=== PATIENT | female | born 2000 | race American Indian/Alaskan Native ===

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

== ENCOUNTER 2020-09-15 08:22 | Outpatient (CLI) | payer OTHER ==
[2020-09-15] MEDS ORDERED: LACTATED RINGERS 1,000 ML ONE (10:22)
[2020-09-15] MEDS ORDERED: LACTATED RINGERS 500 ML IV ONE (10:32)
[2020-09-15 11:56] LABS: Bilirubin,Urine NEG (Negative); Blood,Urine NEG (Negative); Color,Urine Yellow (Yellow); Protein,Urine <15 mg/dL mg/dL (Negative); Urobilinogen,Urine < 2.0 mg/dL (<2.0)
[2020-09-15] MEDS ORDERED: TERBUTALINE 1 MG/1 ML INJ SUB-Q ONE (12:21)
[2020-09-15 13:49] VITALS: BP 115/67
== END 2020-09-15 14:15 | disposition home or self-care (01) ==
LOC: TRG 08:22 → APU 08:25 → TRG 14:15
PROVIDERS: ATTEND Obstetrics & Gynecology
DX: O26.893 Other specified pregnancy related conditions, third trimester (principal); R10.2 Pelvic and perineal pain; Z3A.34 34 weeks gestation of pregnancy
CPT/HCPCS: 59025; 81001; 96361; 96365; 96372; J0690; J3105; J7120; 96360

== ENCOUNTER 2020-09-24 10:52 | Emergency (ER) | payer OTHER ==
[2020-09-24 14:09] LABS: Basophils % (Auto) 0.4 % (0.0-1.8); Eosinophils # (Auto) 0.1 K/mm3 (0.0-0.4); Eosinophils % (Auto) 0.8 % (0.0-4.3); Hemoglobin 10.4 gm/dl (10.1-14.3); Lymphocytes # (Auto) 1.5 K/mm3 (1.2-5.4); Lymphocytes % (Auto) 19.3 % (13.4-35.0); Mean Corpuscular HGB Conc 34 % (30-34); Mean Corpuscular Volume 82 fl (79-97); Monocytes # (Auto) 0.7 K/mm3 (0.0-0.8); Monocytes % (Auto) 8.4 % (0.0-7.3); Platelet Count 172 K/mm3 (140-440); Red Cell Distribution Width 18.6 % (13.2-15.2)
[2020-09-24 14:21] LABS: Alanine Aminotransferase 14 units/L (7-56); Albumin 3.7 g/dL (3.9-5); Blood Urea Nitrogen 4 mg/dL (7-17); Calcium 8.8 mg/dL (8.4-10.2); Hemolysis Index 3
[2020-09-24 14:25] LABS: BUN/Creatinine Ratio 10
--- NOTE | 2020-09-24 15:45 | Emergency Department Report ---
HPI - General Chief Complaint: Neuro Symptoms/Deficit Time Seen by Provider: 09/24/20 15:07 - HPI HPI: 20-year-old female at approximately 35 weeks gestation based on ultrasound presents complaining of left facial droop and the sensation of heaviness on the left side of her face which started yesterday at approximately 8 PM. Patient states that for the past week she has had congestion/runny nose, sneezing. She had a mild sore throat which resolved a few days ago. Then yesterday at about 8 PM she noticed that the left side of her face felt very heavy when she looked in the mirror she noted that the left side of her face was drooping including the eye. She has no other neurologic symptoms and no other areas of weakness. She denies any headache, vision change, dysphagia, neck/back pain, abdominal pain, dysuria, vaginal bleeding, focal weakness outside the face, numbness/tingling of any part of her body, cough, shortness of breath, chest pain, nausea/vomiting, or any other complaints ED Past Medical Hx - Past Medical History Previous Medical History?: Yes Hx Hypertension: No Hx Diabetes: No Hx Deep Vein Thrombosis: No Hx Renal Disease: No Hx Sickle Cell Disease: No Hx Seizures: No Hx Asthma: No Hx HIV: No Additional medical history: LOW IRON - Surgical History Past Surgical History?: No - Social History Smoking Status: Never Smoker Substance Use Type: None - Medications Home Medications: Home Medications Medication Instructions Recorded Confirmed Last Taken Type Glycerin/Propylene Glycol 30 ml OP Q1H #1 drops 09/24/20 Unknown Rx [Artificial Tears Drops] Mineral Oil/Petrolatum,White [Akwa 3.5 gm OP QHS #1 tube 09/24/20 Unknown Rx Tears Ointment] predniSONE [Deltasone] 60 mg PO QDAY 6 Days #18 tab 09/24/20 Unknown Rx ED Review of Systems ROS: Stated complaint: HALF OF FACE NOT MOVING Other details as noted in HPI Constitutional: denies: chills, fever Eyes: denies: eye pain, vision change ENT: throat pain (resolved), congestion. denies: hearing loss Respiratory: denies: cough, shortness of breath Cardiovascular: denies: chest pain, palpitations, syncope Gastrointestinal: denies: abdominal pain, nausea, vomiting Genitourinary: denies: dysuria, frequency Musculoskeletal: denies: back pain, myalgia Skin: denies: rash Neurological: other (left fgacial droop). denies: headache, weakness, numbness, paresthesias Physical Exam - Physical Exam Vital Signs: Vital Signs 09/24/20 17:18 Temperature 98.2 F Pulse Rate 80 Respiratory 16 Rate Blood Pressure 105/65 [Left] O2 Sat by Pulse 100 Oximetry Physical Exam: GENERAL: Well developed and well nourished. No acute distress HEENT: Normocephalic. No obvious signs of trauma. Moist mucous membranes. Posterior pharynx is within normal limits. There are bilateral tonsillar stones seen but not exudate. Normal TMs bilaterally. No lesions to the external auditory canal or face. At this time the patient is able to fully close both eyelids. EYES: Extraocular movements are intact. Pupils are equal round and reactive to light bilaterally NECK: Supple. Trachea is midline. LUNGS: Nonlabored breathing. Equal chest rise bilaterally. Clear to auscultation bilaterally. HEART/CARDIOVASCULAR: Regular rate and rhythm. No murmurs or rubs. VASCULAR: 2+ peripheral pulses. Cap refill < 2 seconds ABDOMEN: Abdomen is soft and nondistended. There is no significant tenderness, guarding or rebound. SKIN: Skin is warm and dry NEURO: Patient is awake, alert, and oriented. There is flattening of the n asolabial fold on the left side as well as decreased ability to retract the eyebrow on the left. There is left-sided ptosis as well. Normal sensory exam from head to toe. No motor deficits in all 4 extremities. Normal speech. Normal swallowing. MUSCULOSKELETAL: No obvious deformities. No significant tenderness. ED Medical Decision Making - Lab Data Result diagrams: 09/24/20 13:10 09/24/20 13:10 Lab Results 09/24/20 09/24/20 Range/Units 13:10 13:10 WBC 7.8 (4.5-11.0) K/mm3 RBC 3.80 (3.65-5.03) M/mm3 Hgb 10.4 (10.1-14.3) gm/dl Hct 31.0 (30.3-42.9) % MCV 82 (79-97) fl MCH 27 L (28-32) pg MCHC 34 (30-34) % RDW 18.6 H (13.2-15.2) % Plt Count 172 (140-440) K/mm3 Lymph % (Auto) 19.3 (13.4-35.0) % Moca % (Auto) 8.4 H (0.0-7.3) % Eos % (Auto) 0.8 (0.0-4.3) % Baso % (Auto) 0.4 (0.0-1.8) % Lymph # (Auto) 1.5 (1.2-5.4) K/mm3 Moca # (Auto) 0.7 (0.0-0.8) K/mm3 Eos # (Auto) 0.1 (0.0-0.4) K/mm3 Baso # (Auto) 0.0 (0.0-0.1) K/mm3 Seg Neutrophils % 71.1 H (40.0-70.0) % Seg Neutrophils # 5.6 (1.8-7.7) K/mm3 Sodium 135 L (137-145) mmol/L Potassium 3.7 (3.6-5.0) mmol/L Chloride 102.6 (98-107) mmol/L Carbon Dioxide 23 (22-30) mmol/L Anion Gap 13 mmol/L BUN 4 L (7-17) mg/dL Creatinine 0.4 L (0.6-1.2) mg/dL Estimated GFR > 60 ml/min BUN/Creatinine Ratio 10 % Glucose 86 (65-100) mg/dL Calcium 8.8 (8.4-10.2) mg/dL Total Bilirubin 0.40 (0.1-1.2) mg/dL AST 16 (5-40) units/L ALT 14 (7-56) units/L Alkaline Phosphatase 80 (35-129) units/L Total Protein 6.7 (6.3-8.2) g/dL Albumin 3.7 L (3.9-5) g/dL Albumin/Globulin Ratio 1.2 % - Medical Decision Making 20-year-old G1, P0 female at 35 weeks gestation based on ultrasound presenting with new onset of left-sided facial droop started at 8 PM last night. The patient has felt mildly ill with congestion, runny nose, and sneezing frequently for the past week. She feels heavy mass on the left side of her face although she has no sensory deficits. Her neurologic exam reveals left-sided facial paralysis involving the forehead and eyebrow. She has no other neurologic deficits and the remainder of her physical examination is within normal limits. She has had no vaginal bleeding, contractions, dysuria, hematuria, or any other complaints. 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 I spoke with the teleneurologist who has seen the patient and agrees with my diagnosis. He recommends discharge on prednisone. However, given that the patient is 35 weeks we will consult [employer] for recommendations regarding treatment. ] At 4:40 PM I spoke with Dr. Díaz of [employer] regarding the case. He says that it is okay to prescribe prednisone even in her state because it does not cross the placenta. He recommends follow-up with her [employer] We will proceed with treatment and prescribe prednisone 60 mg daily starting with the first dose now. At this time she is able to fully close both eyelids but nonetheless I explained the importance of eye care and will prescribe artificial tears every hour while awake and artificial tear ointment to apply at night with instructions to tape the left eye closed. All this was discussed with the patient who expressed understanding and agreement with the plan of care . Critical care attestation.: If time is entered above; I have spent that time in minutes in the direct care of this critically ill patient, excluding procedure time. ED Disposition Clinical Impression: Weldon's palsy affecting Disposition: DC-01 TO HOME OR SELFCARE Is pt being admited?: No Condition: Stable Instructions: Weldon Palsy, Adult Additional Instructions: Please follow-up with your [employer] within the next few days. Use all prescriptions as instructed. Please use the artificial teardrops every hour while awake and apply 1 ribbon of ointment into your left eye just prior to sleep and tape the eye closed. Follow-up with your primary care doctor. Return to the emergency department should you develop any new concerning symptoms. Prescriptions: Mineral Oil/Petrolatum,White [Akwa Tears Ointment] 3.5 gm OP QHS #1 tube Glycerin/Propylene Glycol [Artificial Tears Drops] 30 ml OP Q1H #1 drops predniSONE [Deltasone] 60 mg PO QDAY 6 Days #18 tab Referrals: [facility] [facility] [Provider Group] - 2-3 Days [facility] [Provider Group] - 3-5 Days
--- NOTE | 2020-09-24 16:18 | Consultation ---
Medications and Allergies Allergies Allergy/AdvReac Type Severity Reaction Status Date / Time No Known Allergies Allergy Verified 02/22/17 10:24 Results - Laboratory Findings CBC and BMP: 09/24/20 13:10 09/24/20 13:10 Abnormal Lab Findings: Abnormal Labs 09/24/20 09/24/20 13:10 13:10 MCH 27 L RDW 18.6 H Cochran % (Auto) 8.4 H Seg Neutrophils % 71.1 H Sodium 135 L BUN 4 L Creatinine 0.4 L Albumin 3.7 L Assessment and Plan [facility] Consult Note # Demographics Consult Type: General Neurology Patient Location: Emergency Room First Name: Rosalia Last Name: Emerson Date of : 2000 Age: 20 Gender: Female Time of Initial Page ( Time): 09/24/2020, 15:49 Time of Return Call ( Time): 09/24/2020, 16:07 # HPI History: 20F with facial droop, she is . Onset last night about 20:00. No prior similar. Denies recent illness or injury, slight cold. at 35wks. Tongue tastes funny. Slight headache on left. # Scores Time of exam and NIHSS ( Time): 09/24/2020, 16:15 Level of Consciousness 1a: [0] = Alert; keenly responsive LOC Questions 1b: [0] = Answers both questions correctly LOC Commands 1c: [0] = Performs both tasks correctly Best Gaze 2: [0] = Normal Visual 3: [0] = No visual loss Facial Palsy 4: [2] = Partial paralysis Motor Arm Left 5a: [0] = No drift Motor Arm Right 5b: [0] = No drift Motor Leg Left 6a: [0] = No drift Motor Leg Right 6b: [0] = No drift Limb Ataxia 7: [0] = Absent Sensory 8: [0] = Normal Best Language 9: [0] = No aphasia Dysarthria 10: [0] = Normal Extinction and Inattention 11: [0] = No abnormality NIHSS Total: 2 # Exam Additional Neurologic Exam: Eye closure weakness on left. # Assessment Impression: [place] Palsy on left. # Plan Thrombolytic/Intervention: NOT IV Thrombolytic or IA Intervention Thrombolytic Exclusion (< 3 hour window): time of onset unclear Thrombolytic Exclusion: > 4.5 hours Intraarterial Exclusion: clinically not consistent with stroke Other: I have discussed my recommendations with the referring provider Additional Recommendations: Prednisone 60mg daily x 7d, eye care to prevent secondary corneal injury. Disposition: discharge # Logistics Telemedicine: Interactive 2 way audio and visual telecommunication technology was utilized during this visit
[2020-09-24] MEDS ORDERED: predniSONE 20 MG TAB PO ONE (16:44)
[2020-09-24 17:18] VITALS: BP 105/65
== END 2020-09-24 17:30 | disposition home or self-care (01) ==
LOC: ED 10:52
DX: O99.353 Diseases of the nervous system complicating pregnancy, third trimester (principal); G51.0 Bell's palsy; Z79.899 Other long term (current) drug therapy; Z3A.35 35 weeks gestation of pregnancy
CPT/HCPCS: 36415; 80053; 85025; 99283; J7512

== ENCOUNTER 2020-10-04 02:26 | Inpatient (IN) | payer OTHER ==
[2020-10-04] MEDS ORDERED: LACTATED RINGERS 1,000 ML IV ONE (02:59)
[2020-10-04] MEDS ORDERED: TERBUTALINE 1 MG/1 ML INJ SUB-Q SCH (03:00)
[2020-10-04 03:45] LABS: Bacteria,Urine 1+ /HPF (Negative); Bilirubin,Urine NEG (Negative); Blood,Urine MOD (Negative); Color,Urine Straw (Yellow); Protein,Urine <15 mg/dL mg/dL (Negative); Urobilinogen,Urine < 2.0 mg/dL (<2.0)
[2020-10-04] MEDS ORDERED: ONDANSETRON 4 MG/2 ML INJ IV PRN (05:52)
[2020-10-04] MEDS ORDERED: ePHEDrine SULFATE 50 MG/1 ML INJ IV PRN ×2 (05:52→07:30)
[2020-10-04] MEDS ORDERED: AMPICILLIN/NS 2 GM/100 ML 2 GM/100 ML BAG IV ONE (05:52)
[2020-10-04] MEDS ORDERED: MINERAL OIL 30 ML ORAL LIQD PO PRN (05:52)
[2020-10-04] MEDS ORDERED: NalbUPHINE 10 MG/1 ML INJ IV PRN (05:52)
[2020-10-04] MEDS ORDERED: miSOPROStol 200 MCG TAB PR PRN (05:52)
[2020-10-04] MEDS ORDERED: LIDOCAINE (2%) 20 MG/1 ML VIAL 20 ML MDV INFILTRATI ONE (05:52)
[2020-10-04] MEDS ORDERED: BUTORPHANOL 2 MG/1 ML INJ IV PRN (05:52)
[2020-10-04] MEDS ORDERED: METHYLERGONOVINE MALEATE 0.2 MG/ML VIAL IM PRN (05:52)
[2020-10-04] MEDS ORDERED: fentaNYL 100 MCG/2 ML INJ IV PRN (05:52)
[2020-10-04] MEDS ORDERED: LACTATED RINGERS 1,000 ML IV SCH (06:00)
[2020-10-04] MEDS ORDERED: OXYTOCIN DRIP 30 UNITS/500 ML BAG IV SCH (06:00)
[2020-10-04 07:08] LABS: Hematocrit 30.8 % (30.3-42.9); Hemoglobin 10.2 gm/dl (10.1-14.3); Mean Corpuscular HGB Conc 33 % (30-34); Mean Corpuscular Volume 82 fl (79-97); Platelet Count 172 K/mm3 (140-440); Red Blood Count 3.73 M/mm3 (3.65-5.03); Red Cell Distribution Width 17.8 % (13.2-15.2)
--- NOTE | 2020-10-04 07:11 | Anesthesia Consultation ---
Anesthesia Consult and Med Hx Date of service: 10/04/20 - Airway Anesthetic Teeth Evaluation: Good ROM Head & Neck: Adequate Mental/Hyoid Distance: Adequate Mallampati Class: Class II Intubation Access Assessment: Probably Good - Pulmonary Exam CTA: Yes - Cardiac Exam Cardiac Exam: RRR - Pre-Operative Health Status ASA Pre-Surgery Classification: ASA2 Proposed Anesthetic Plan: Epidural - Pulmonary Hx Asthma: No COPD: No Hx Pneumonia: No - Cardiovascular System Hx Hypertension: No - Central Nervous System Hx Seizures: No Hx Psychiatric Problems: No - Endocrine Hx Renal Disease: No Hx End Stage Renal Disease: No Hx Hypothyroidism: No Hx Hyperthyroidism: No - Hematic Hx Anemia: Yes Hx Sickle Cell Disease: No - Other Systems Hx Alcohol Use: No
--- NOTE | 2020-10-04 07:13 | Progress Note ---
Labor Epidural - Labor Epidural Start Time: 07:05 Stop Time: 07:12 Performed by:: MARÍA SANTIAGO Procedure: Patient is requesting epidural for labor pain. H&P, and labs reviewed. Procedure explained, questions answered, consent obtained. Patient in sitting position with blood pressure cuff and pulse ox on and working. Timeout performed immediately before start of procedure. Sterile chlorahexadine 0.5% prep/drape. 3 mL 1% lidocaine skin wheal at L[3]-L[4]. [facility] advanced to [id number] with saline at [7] cm. Epidural catheter advanced to [12] cm, negative aspiration for blood and csf, negative test dose 3 ml 1.5% lidocaine with epinephrine. Epidural dexmedetomidine [30] mcg administered. Sterile steri-strips and tegaderm applied, followed by tape reinforcement. Patient tolerated procedure well. Abraham VALENZUELA
[2020-10-04] MEDS ORDERED: NALOXONE 2 MG/2 ML INJ IV PRN (07:30)
[2020-10-04] MEDS: fentaNYL-BUPIV 2 MCG/ML-0.125% 200 MCG/100 ML BAG EPIDURAL SCH ×2 (07:48→23:40)
--- NOTE | 2020-10-04 08:48 | History and Physical Report ---
History of Present Illness Date of examination: 10/04/20 Chief complaint: "Bleeding and pain" History of present illness: 20yo, G1 @ 36.5 wks, initiated care with [facility], transferring from [facility] at 16.4 wks gestation. Her has been complicated by anemia. She reports to [facility] this am with reports of pelvic pressure and bleeding after having sex. Reports +FM. Denies any LOF. She was found to have cervical change and thus admitted for labor. Labs: A+, antibody negative; rubella immune; VDRL non-reactive; HBsAg negative; HSV-2 negative; GC/Chlamydia negative; HIV negative; 1 hr gtt - 92; GBS unknown. Past History Past Medical History: other (anemia) Past Surgical History: no surgical history PATENT PROSECUTION PARALEGAL History: chlamydia, other (Gonorrhea) Family/Genetic History: hypertension, cancer (ovarian - MGM; breast cancer - MGM) Social history: single, full code. denies: smoking, alcohol abuse, prescription drug abuse, IV drug use - Obstetrical History Expected Date of Delivery: 10/27/20 Actual Gestation: 36 Week(s) 5 Day(s) : 1 Para: 0 Hx # Term Pregnancies: 0 Number of Pregnancies: 0 Spontaneous Abortions: 0 Induced : 0 Number of Living Children: 0 Medications and Allergies Allergies Allergy/AdvReac Type Severity Reaction Status Date / Time No Known Allergies Allergy Verified 02/22/17 10:24 Home Medications Medication Instructions Recorded Confirmed Last Taken Type Glycerin/Propylene Glycol 30 ml OP Q1H #1 drops 09/24/20 10/04/20 09/21/20 Rx [Artificial Tears Drops] Mineral Oil/Petrolatum,White [Akwa 3.5 gm OP QHS #1 tube 09/24/20 10/04/20 09/21/20 08:00 Rx Tears Ointment] predniSONE [Deltasone] 60 mg PO QDAY 6 Days #18 tab 09/24/20 10/04/20 10/02/20 07:00 Rx Ferrous Sulfate 1 mg PO DAILY 10/04/20 10/04/20 09/21/20 History Pnv Plus Multivit Tab 1 mg PO DAILY 10/04/20 10/04/20 10/03/20 07:00 History Active Meds: Active Medications Butorphanol Tartrate (Butorphanol 2 Mg/1 Ml Inj) 2 mg IV Q2H PRN PRN Reason: Pain , Severe (7-10) Ephedrine Sulfate (Ephedrine Sulfate 50 Mg/1 Ml Inj) 10 mg IV Q2M PRN PRN Reason: Hypotension Fentanyl (Fentanyl 100 Mcg/2 Ml Inj) 100 mcg IV Q2H PRN PRN Reason: Pain,Severe (7-10) LABOR PAIN Oxytocin/Sodium Chloride (Pitocin/Ns 30 Unit/500ml) 30 units in 500 mls @ 2 mls/hr IV TITR DEONTE; Protocol Lactated Ringer's (Lactated Ringers) 1,000 mls @ 125 mls/hr IV DIRECT DEONTE Oxytocin/Sodium Chloride (Pitocin/Ns 30 Unit/500ml) 30 units in 500 mls @ 40 mls/hr IV TITR DEONTE; Protocol Fentanyl/Bupivacaine/Sodium Chlor (Fentanyl-Bupiv 2 Mcg/Ml-0.125%) 200 mcg in 100 mls @ 12 mls/hr EPIDURAL TITR DEONTE; Protocol Last Admin: 10/04/20 07:48 Dose: 12 mls/hr Documented by: Methylergonovine Maleate (Methylergonovine Maleate 0.2 Mg/Ml Vial) 0.2 mg IM ONCE PRN PRN Reason: Uterine Bleeding Mineral Oil (Mineral Oil 30 Ml Oral Liqd) 30 ml PO QHS PRN PRN Reason: Constipation Misoprostol (Misoprostol 200 Mcg Tab) 800 mcg WV ONCE PRN PRN Reason: Uterine Bleeding Nalbuphine HCl (Nalbuphine 10 Mg/1 Ml Inj) 10 mg IV Q2H PRN PRN Reason: Pain, Moderate (4-6) Naloxone HCl (Naloxone 2 Mg/2 Ml Inj) 0.2 mg IV Q5M PRN PRN Reason: Respiratory sedation Ondansetron HCl (Ondansetron 4 Mg/2 Ml Inj) 4 mg IV Q8H PRN PRN Reason: Nausea And Vomiting Terbutaline Sulfate (Terbutaline 1 Mg/1 Ml Inj) 0.25 mg SUB-Q Q20MIN DEONTE Stop: 10/06/20 03:01 Review of Systems All systems: negative Genitourinary: vaginal bleeding, contractions (painful) - Vital Signs Vital signs: Vital Signs Pulse BP 98 H 121/71 10/04/20 02:58 10/04/20 02:58 Temp Pulse Resp BP Pulse Ox 98.4 F 73 20 103/57 98 10/04/20 07:15 10/04/20 08:45 10/04/20 07:15 10/04/20 08:25 10/04/20 08:45 - Physical Exam Breasts: Positive: normal Cardiovascular: Regular rate Lungs: Positive: Normal air movement Abdomen: Positive: other (gravid) Uterus: Positive: enlarged (S=D) Extremities: Positive: edema Deep Tendon Reflex Grade: Normal +2 - Obstetrical FHR: category 1 Uterine Contraction Monitor Mode: External Cervical Dilatation: 4.5 (per RN) Cervical Effacement Percentage: 70 station: -1 Uterine Contraction Frequency (min): 4-5 Uterine Contraction Pattern: Irregular Uterine Tone Measurement Phase: Resting Uterine Contraction Intensity: Mild Results Result Diagrams: 10/04/20 03:25 Abnormal lab results 10/04/20 10/04/20 Range/Units 03:25 Unknown MCH 27 L (28-32) pg RDW 17.8 H (13.2-15.2) % Urine pH 8.0 H (5.0-7.0) All other labs normal. Assessment and Plan - Patient Problems (1) labor in third trimester Current Visit: Yes Status: Acute Qualifiers: Fetus number: single or unspecified fetus Plan to address problem: Expectant management Comfortable with epidural Anticipate (2) GBS screening not performed Current Visit: Yes Status: Acute Plan to address problem: Initiate GBS prophylaxis per policy
--- NOTE | 2020-10-04 09:28 | Event Note ---
Date: 10/04/20 Will move forward with Pitocin augmentation since pt already has epidural in place and is clay approx every 4-6 mins.
[2020-10-04] MEDS: OXYTOCIN DRIP 30 UNITS/500 ML BAG IV SCH ×2 (09:45→13:22)
--- NOTE | 2020-10-04 17:00 | Progress Note ---
Assessment and Plan - Patient Problems (1) labor in third trimester Current Visit: Yes Status: Acute Qualifiers: Fetus number: single or unspecified fetus Plan to address problem: Continue Pitocin augmentation as tolerated Comfortable with epidural Anticipate (2) GBS screening not performed Current Visit: Yes Status: Acute Plan to address problem: Continue GBS prophylaxis per policy Subjective - Subjective Date of service: 10/04/20 Principal diagnosis: Pre-term labor Interval history: 20yo, G1 @ 36.5 wks, initiated care with [facility], transferring from [facility] at 16.4 wks gestation. Her has been complicated by anemia. She reports to [facility] this am with reports of pelvic pressure and bleeding after having sex. Reports +FM. Denies any LOF. She was found to have cervical change and thus admitted for labor. Labs: A+, antibody negative; rubella immune; VDRL non-reactive; HBsAg negative; HSV-2 negative; GC/Chlamydia negative; HIV negative; 1 hr gtt - 92; GBS unknown. Patient reports: movement normal, contractions, no new complaints, no loss of fluid, no vaginal bleeding Objective - Vital Signs Vital Signs: Vital Signs - 12hr 10/04/20 10/04/20 10/04/20 06:25 06:30 06:35 Temperature Pulse Rate 80 76 76 Respiratory Rate Blood Pressure Blood Pressure [Right] O2 Sat by Pulse 98 98 99 Oximetry 10/04/20 10/04/20 10/04/20 06:40 06:45 06:50 Temperature Pulse Rate 82 85 92 H Respiratory Rate Blood Pressure Blood Pressure [Right] O2 Sat by Pulse 98 98 98 Oximetry 10/04/20 10/04/20 10/04/20 06:55 06:59 07:00 Temperature Pulse Rate 95 H 86 84 Respiratory Rate Blood Pressure 122/66 117/67 Blood Pressure [Right] O2 Sat by Pulse 99 99 Oximetry 10/04/20 10/04/20 10/04/20 07:02 07:04 07:05 Temperature Pulse Rate 82 100 H 102 H Respiratory Rate Blood Pressure 114/68 122/74 Blood Pressure [Right] O2 Sat by Pulse 99 Oximetry 10/04/20 10/04/20 10/04/20 07:07 07:09 07:10 Temperature Pulse Rate 85 86 84 Respiratory Rate Blood Pressure 136/69 120/66 118/66 Blood Pressure [Right] O2 Sat by Pulse 100 Oximetry 10/04/20 10/04/20 10/04/20 07:12 07:14 07:15 Temperature 98.4 F Pulse Rate 82 81 75 Respiratory 20 Rate Blood Pressure 112/64 118/65 Blood Pressure 109/70 [Right] O2 Sat by Pulse 98 Oximetry 10/04/20 10/04/20 10/04/20 07:17 07:19 07:20 Temperature Pulse Rate 79 75 84 Respiratory Rate Blood Pressure 111/64 109/70 Blood Pressure [Right] O2 Sat by Pulse 98 Oximetry 10/04/20 10/04/20 10/04/20 07:21 07:23 07:25 Temperature Pulse Rate 84 78 76 Respiratory Rate Blood Pressure 120/76 118/68 113/60 Blood Pressure [Right] O2 Sat by Pulse 96 Oximetry 10/04/20 10/04/20 10/04/20 07:30 07:35 07:40 Temperature Pulse Rate 72 76 74 Respiratory Rate Blood Pressure Blood Pressure [Right] O2 Sat by Pulse 96 96 95 Oximetry 10/04/20 10/04/20 10/04/20 07:45 07:50 07:55 Temperature Pulse Rate 74 78 72 Respiratory Rate Blood Pressure Blood Pressure [Right] O2 Sat by Pulse 96 95 96 Oximetry 10/04/20 10/04/20 10/04/20 07:57 08:00 08:05 Temperature Pulse Rate 74 73 74 Respiratory Rate Blood Pressure 97/52 Blood Pressure [Right] O2 Sat by Pulse 96 96 Oximetry 10/04/20 10/04/20 10/04/20 08:10 08:15 08:20 Temperature Pulse Rate 76 85 74 Respiratory Rate Blood Pressure Blood Pressure [Right] O2 Sat by Pulse 95 95 96 Oximetry 10/04/20 10/04/20 10/04/20 08:25 08:30 08:35 Temperature Pulse Rate 75 76 79 Respiratory Rate Blood Pressure 103/57 Blood Pressure [Right] O2 Sat by Pulse 95 95 97 Oximetry 10/04/20 10/04/20 10/04/20 08:40 08:45 08:50 Temperature Pulse Rate 72 73 72 Respiratory Rate Blood Pressure Blood Pressure [Right] O2 Sat by Pulse 99 98 96 Oximetry 10/04/20 10/04/20 10/04/20 08:55 08:56 09:00 Temperature Pulse Rate 70 71 74 Respiratory Rate Blood Pressure 94/54 Blood Pressure [Right] O2 Sat by Pulse 97 97 Oximetry 10/04/20 10/04/20 10/04/20 09:05 09:10 09:15 Temperature Pulse Rate 70 72 70 Respiratory Rate Blood Pressure Blood Pressure [Right] O2 Sat by Pulse 97 97 97 Oximetry 10/04/20 10/04/20 10/04/20 09:20 09:25 09:26 Temperature Pulse Rate 73 74 74 Respiratory Rate Blood Pressure 99/58 Blood Pressure [Right] O2 Sat by Pulse 96 97 Oximetry 10/04/20 10/04/20 10/04/20 09:30 09:35 09:40 Temperature Pulse Rate 73 79 74 Respiratory Rate Blood Pressure Blood Pressure [Right] O2 Sat by Pulse 96 96 97 Oximetry 10/04/20 10/04/20 10/04/20 09:45 09:46 09:50 Temperature Pulse Rate 80 75 82 Respiratory Rate Blood Pressure 105/60 Blood Pressure [Right] O2 Sat by Pulse 98 98 Oximetry 10/04/20 10/04/20 10/04/20 09:55 10:00 10:05 Temperature Pulse Rate 73 77 69 Respiratory Rate Blood Pressure 108/62 Blood Pressure [Right] O2 Sat by Pulse 98 98 99 Oximetry 10/04/20 10/04/20 10/04/20 10:10 10:15 10:20 Temperature Pulse Rate 71 72 77 Respiratory Rate Blood Pressure Blood Pressure [Right] O2 Sat by Pulse 98 98 99 Oximetry 10/04/20 10/04/20 10/04/20 10:25 10:30 10:35 Temperature Pulse Rate 73 68 68 Respiratory Rate Blood Pressure 121/63 Blood Pressure [Right] O2 Sat by Pulse 99 99 99 Oximetry 10/04/20 10/04/20 10/04/20 10:40 10:45 10:50 Temperature Pulse Rate 71 69 73 Respiratory Rate Blood Pressure Blood Pressure [Right] O2 Sat by Pulse 97 97 96 Oximetry 10/04/20 10/04/20 10/04/20 10:55 10:56 11:00 Temperature Pulse Rate 69 69 73 Respiratory Rate Blood Pressure 104/63 Blood Pressure [Right] O2 Sat by Pulse 97 97 Oximetry 10/04/20 10/04/20 10/04/20 11:05 11:10 11:15 Temperature Pulse Rate 72 73 68 Respiratory Rate Blood Pressure Blood Pressure [Right] O2 Sat by Pulse 96 97 97 Oximetry 10/04/20 10/04/20 10/04/20 11:20 11:25 11:30 Temperature Pulse Rate 73 72 72 Respiratory Rate Blood Pressure 105/62 Blood Pressure [Right] O2 Sat by Pulse 96 98 96 Oximetry 10/04/20 10/04/20 10/04/20 11:35 11:40 11:45 Temperature Pulse Rate 69 70 73 Respiratory Rate Blood Pressure Blood Pressure [Right] O2 Sat by Pulse 97 97 96 Oximetry 10/04/20 10/04/20 10/04/20 11:48 11:50 11:55 Temperature Pulse Rate 76 72 69 Respiratory Rate Blood Pressure Blood Pressure [Right] O2 Sat by Pulse 94 97 98 Oximetry 10/04/20 10/04/20 10/04/20 11:56 12:00 12:05 Temperature Pulse Rate 68 73 72 Respiratory Rate Blood Pressure 102/63 Blood Pressure [Right] O2 Sat by Pulse 96 97 Oximetry 10/04/20 10/04/20 10/04/20 12:10 12:15 12:20 Temperature Pulse Rate 72 71 84 Respiratory Rate Blood Pressure Blood Pressure [Right] O2 Sat by Pulse 96 96 95 Oximetry 10/04/20 10/04/20 10/04/20 12:25 12:26 12:30 Temperature Pulse Rate 72 71 69 Respiratory Rate Blood Pressure 102/62 Blood Pressure [Right] O2 Sat by Pulse 97 97 Oximetry 10/04/20 10/04/20 10/04/20 12:35 12:40 12:45 Temperature Pulse Rate 75 73 71 Respiratory Rate Blood Pressure Blood Pressure [Right] O2 Sat by Pulse 98 97 98 Oximetry 10/04/20 10/04/20 10/04/20 12:50 12:54 12:55 Temperature Pulse Rate 75 71 83 Respiratory Rate Blood Pressure Blood Pressure [Right] O2 Sat by Pulse 96 94 97 Oximetry 10/04/20 10/04/20 10/04/20 12:56 13:00 13:05 Temperature Pulse Rate 76 76 71 Respiratory Rate Blood Pressure 106/65 Blood Pressure [Right] O2 Sat by Pulse 96 98 Oximetry 10/04/20 10/04/20 10/04/20 13:10 13:15 13:20 Temperature Pulse Rate 73 72 72 Respiratory Rate Blood Pressure Blood Pressure [Right] O2 Sat by Pulse 98 97 98 Oximetry 10/04/20 10/04/20 10/04/20 13:22 13:25 13:30 Temperature Pulse Rate 66 71 70 Respiratory Rate Blood Pressure 107/64 100/58 Blood Pressure [Right] O2 Sat by Pulse 99 97 Oximetry 10/04/20 10/04/20 10/04/20 13:35 13:39 13:40 Temperature Pulse Rate 67 83 75 Respiratory Rate Blood Pressure Blood Pressure [Right] O2 Sat by Pulse 98 78 L 99 Oximetry 10/04/20 10/04/20 10/04/20 13:45 13:50 13:55 Temperature Pulse Rate 70 70 67 Respiratory Rate Blood Pressure Blood Pressure [Right] O2 Sat by Pulse 100 100 99 Oximetry 10/04/20 10/04/20 10/04/20 13:56 14:00 14:05 Temperature Pulse Rate 73 76 73 Respiratory Rate Blood Pressure 121/71 Blood Pressure [Right] O2 Sat by Pulse 99 99 Oximetry 10/04/20 10/04/20 10/04/20 14:10 14:15 14:20 Temperature Pulse Rate 71 77 72 Respiratory Rate Blood Pressure Blood Pressure [Right] O2 Sat by Pulse 99 98 98 Oximetry 10/04/20 10/04/20 10/04/20 14:25 14:30 14:35 Temperature Pulse Rate 71 71 77 Respiratory Rate Blood Pressure 117/73 Blood Pressure [Right] O2 Sat by Pulse 98 98 98 Oximetry 10/04/20 10/04/20 10/04/20 14:40 14:45 14:50 Temperature Pulse Rate 83 76 80 Respiratory Rate Blood Pressure Blood Pressure [Right] O2 Sat by Pulse 98 98 98 Oximetry 10/04/20 10/04/20 10/04/20 14:55 15:00 15:05 Temperature Pulse Rate 79 84 77 Respiratory Rate Blood Pressure 119/82 Blood Pressure [Right] O2 Sat by Pulse 100 100 99 Oximetry 10/04/20 10/04/20 10/04/20 15:10 15:15 15:20 Temperature Pulse Rate 78 72 72 Respiratory Rate Blood Pressure Blood Pressure [Right] O2 Sat by Pulse 98 98 97 Oximetry 10/04/20 10/04/20 10/04/20 15:25 15:30 15:35 Temperature Pulse Rate 75 73 77 Respiratory Rate Blood Pressure 114/79 Blood Pressure [Right] O2 Sat by Pulse 97 98 99 Oximetry 0710/04/20 10/04/20 15:40 15:45 15:50 Temperature Pulse Rate 84 74 81 Respiratory Rate Blood Pressure Blood Pressure [Right] O2 Sat by Pulse 97 98 99 Oximetry 10/04/20 10/04/20 10/04/20 15:55 15:56 16:00 Temperature Pulse Rate 70 72 76 Respiratory Rate Blood Pressure 110/68 Blood Pressure [Right] O2 Sat by Pulse 98 98 Oximetry 10/04/20 10/04/20 10/04/20 16:05 16:10 16:15 Temperature Pulse Rate 75 74 77 Respiratory Rate Blood Pressure Blood Pressure [Right] O2 Sat by Pulse 98 98 97 Oximetry 10/04/20 10/04/20 10/04/20 16:20 16:25 16:30 Temperature Pulse Rate 76 71 80 Respiratory Rate Blood Pressure 124/73 Blood Pressure [Right] O2 Sat by Pulse 98 99 99 Oximetry 10/04/20 10/04/20 10/04/20 16:35 16:40 16:45 Temperature Pulse Rate 85 76 75 Respiratory Rate Blood Pressure Blood Pressure [Right] O2 Sat by Pulse 99 97 97 Oximetry 10/04/20 10/04/20 16:50 16:55 Temperature Pulse Rate 76 77 Respiratory Rate Blood Pressure Blood Pressure [Right] O2 Sat by Pulse 95 96 Oximetry - Exam Breasts: deferred Cardiovascular: Regular rate Lungs: Normal air movement FHR: category 1 Uterine Contraction Monitor Mode: External Cervical Dilatation: 6 (per RN) Cervical Effacement Percentage: 70 (Pitocin @ 6mu/min) station: -1 Uterine Contraction Frequency (min): 2 Uterine Contraction Pattern: Regular Uterine Contraction Intensity: Moderate - Labs Labs: Abnormal Labs 10/04/20 10/04/20 03:25 Unknown MCH 27 L RDW 17.8 H Urine pH 8.0 H Laboratory Results - last 24 hr 10/04/20 10/04/20 10/04/20 03:25 03:25 03:25 WBC 10.3 RBC 3.73 Hgb 10.2 Hct 30.8 MCV 82 MCH 27 L MCHC 33 RDW 17.8 H Plt Count 172 Urine Color Urine Turbidity Urine pH Ur Specific [place] Urine Protein Urine Glucose (UA) Urine Ketones Urine Blood Urine Nitrite Urine Bilirubin Urine Urobilinogen Ur Leukocyte Esterase Urine WBC (Auto) Urine RBC (Auto) U Epithel Cells (Auto) Urine Bacteria (Auto) Syphilis IgG Antibody Nonreactive Coronavirus (PCR) Blood Type A POSITIVE Antibody Screen Negative 10/04/20 10/04/20 09:11 Unknown WBC RBC Hgb Hct MCV MCH MCHC RDW Plt Count Urine Color Straw Urine Turbidity Clear Urine pH 8.0 H Ur Specific [place] 1.010 Urine Protein <15 mg/dl Urine Glucose (UA) Neg Urine Ketones Neg Urine Blood Mod Urine Nitrite Neg Urine Bilirubin Neg Urine Urobilinogen < 2.0 Ur Leukocyte Esterase Sm Urine WBC (Auto) 6.0 Urine RBC (Auto) 9.0 U Epithel Cells (Auto) 1.0 Urine Bacteria (Auto) 1+ Syphilis IgG Antibody Coronavirus (PCR) Negative Blood Type Antibody Screen
[2020-10-04] MEDS: AMPICILLIN/NS 1 GM/50 ML 1 GM/50 ML BAG IV SCH (21:43)
[2020-10-05] MEDS: AMPICILLIN/NS 1 GM/50 ML 1 GM/50 ML BAG IV SCH ×3 (01:26→09:23)
[2020-10-05] MEDS: fentaNYL-BUPIV 2 MCG/ML-0.125% 200 MCG/100 ML BAG EPIDURAL SCH (07:24)
--- NOTE | 2020-10-05 08:21 | Event Note ---
Date: 10/05/20 Pt comfortable with epidural. Category I tracing. SVE: /-1. AROM- clear fluid. Urine is noted to be bloody. UA and Creatinine ordered. Closely monitor maternal and status.
[2020-10-05] MEDS ORDERED: BUPIVACAINE/PF (0.25%) 2.5 MG/ML 10 ML VIAL INFILTRATI ONE (09:18)
[2020-10-05 10:21] LABS: RBC,Urine > 182.0 /HPF (0.0-6.0); WBC,Urine > 182.0 /HPF (0.0-6.0)
[2020-10-05 10:24] LABS: Color,Urine RED (Yellow)
[2020-10-05] MEDS ORDERED: BUTORPHANOL 2 MG/1 ML INJ IV PRN ×2 (10:51)
[2020-10-05] MEDS ORDERED: fentaNYL 100 MCG/2 ML INJ IV PRN (10:51)
--- NOTE | 2020-10-05 11:12 | Procedure Note ---
OB Delivery Note - Delivery Date of Delivery: 10/05/20 Surgeon: KARLEY HINES Estimated blood loss: other (pending QBL) - Vaginal Delivery presentation: vertex Delivery position: OA Intrapartum events: PROM->1hr before delivery, uterine atony (s/p Methergine 0.2 mg IM ) Delivery induction: none Delivery augmentation: rupture of membranes, pitocin Delivery monitor: external FHT, external uterine Route of delivery: Delivery placenta: spontaneous Episiotomy: none Delivery laceration: 2nd degree (perineal with repair with 2-0 Vicryl and Chromic in a standard fashion ) Delivery repair: vicryl, chromic Anesthesia: epidural - A at 1 minute: 8 at 5 minutes: 9 Gender: Female (3230g (7lb 2oz) @ 1030 am)
[2020-10-05] MEDS ORDERED: NalbUPHINE 10 MG/1 ML INJ IV PRN (11:30)
[2020-10-05] MEDS ORDERED: ACETAMINOPHEN 325 MG TAB PO PRN (11:30)
[2020-10-05] MEDS ORDERED: LANOLIN/ZINC/DIMETHICONE (LANSINOH) 7 GM TP PRN ×2 (17:18)
[2020-10-05] MEDS ORDERED: BENZOCAINE/MENTHOL 20/0.5% TOP SPRAY 56 GM TP PRN (17:18)
[2020-10-05] MEDS ORDERED: PROMETHAZINE 25 MG TAB PO PRN (17:18)
[2020-10-05] MEDS ORDERED: WITCH HAZEL/ GLYCERIN PAD TP PRN (17:18)
[2020-10-05] MEDS ORDERED: diphenhydrAMINE 25 MG CAP PO PRN (17:18)
[2020-10-05] MEDS ORDERED: ONDANSETRON 4 MG/2 ML INJ IV PRN (17:18)
[2020-10-05] MEDS ORDERED: PROMETHAZINE 25 MG RECT SUPP PR PRN (17:18)
[2020-10-05] MEDS ORDERED: HYDROcodone/ACETAMINOPHEN 5-325 MG TAB PO PRN (17:18)
[2020-10-05] MEDS ORDERED: MAGNESIUM HYDROXIDE (MOM) ORAL LIQD UDC PO PRN (17:18)
[2020-10-05] MEDS: IBUPROFEN 600 MG TAB PO SCH ×2 (17:51→23:31)
[2020-10-06 01:16] LABS: Hematocrit 27.1 % (30.3-42.9); Hemoglobin 8.9 gm/dl (10.1-14.3)
[2020-10-06] MEDS: IBUPROFEN 600 MG TAB PO SCH (05:48)
[2020-10-06] MEDS ORDERED: TETANUS,DIPH,PERTUSS(ACELL) VACCINE 0.5 ML SYRINGE IM ONE (06:00)
[2020-10-06] MEDS ORDERED: MEASLES, MUMPS & RUBELLA 12,500 UNIT/0.5 ML VACCINE SUB-Q ONE (06:00)
--- NOTE | 2020-10-06 08:10 | Progress Note ---
Assessment and Plan - Patient Problems (1) Active labor Current Visit: Yes Status: Acute Plan to address problem: patient doing well discharge home Subjective - Subjective Date of service: 10/06/20 Principal diagnosis: Pre-term labor Interval history: Patient without any significant complaints. Pain well controlled Patient reports: appetite normal, voiding normally, pain well controlled : doing well Objective - Vital Signs Latest vital signs: Vital Signs Temp Pulse Resp BP BP Pulse Ox 10/06/20 06:48 18 10/06/20 05:48 18 10/06/20 00:31 18 10/05/20 23:48 98.2 F 86 20 106/70 95 10/05/20 23:31 18 10/05/20 20:06 98.6 F 82 20 122/61 96 10/05/20 16:35 98.2 F 82 18 119/77 97 10/05/20 14:00 98.1 F 79 20 127/89 10/05/20 13:25 76 135/85 10/05/20 12:55 72 134/81 10/05/20 12:25 75 125/77 10/05/20 11:56 79 141/85 10/05/20 11:31 98.6 F 18 10/05/20 11:25 75 120/73 10/05/20 10:55 75 123/73 10/05/20 10:25 85 127/72 10/05/20 09:55 81 125/77 10/05/20 09:26 75 121/74 10/05/20 09:10 82 98 10/05/20 09:08 84 93 10/05/20 09:05 85 97 10/05/20 09:00 75 96 10/05/20 08:55 86 113/69 96 10/05/20 08:50 79 97 10/05/20 08:45 75 98 10/05/20 08:40 80 99 10/05/20 08:35 82 96 10/05/20 08:30 83 98 10/05/20 08:27 79 124/75 10/05/20 08:25 85 97 10/05/20 08:20 81 97 10/05/20 08:15 87 96 10/05/20 08:10 86 97 Intake and Output 10/05/20 10/06/20 10/06/20 22:59 06:59 14:59 Intake Total 960 Output Total 1600 Balance -1600 960 Intake: Oral 360 Intake, Free Water 600 Output: Urine 1600 Void 1600 Other: Total, Intake Amount 360 Total, Output Amount 550 # Voids Void 1 1 - Labs Labs: Abnormal lab results 10/05/20 10/06/20 Range/Units 07:34 00:59 Hgb 8.9 L (10.1-14.3) gm/dl Hct 27.1 L (30.3-42.9) % Urine WBC (Auto) > 182.0 H (0.0-6.0) /HPF
--- NOTE | 2020-10-06 08:12 | Discharge Summary ---
Providers - Providers Date of Admission: 10/05/20 10:52 Date of discharge: 10/06/20 Attending physician: MIKY PADILLA 10/05/20 17:18 Consult to Associate [employer] [CONS] Routine Reason For Exam: assistance with , SNS Primary care physician: MIKY PADILLA Hospitalization Reason for admission: active labor, labor Delivery: Discharge diagnosis: delivery Hospital course: Patient admitted in active labor. Had a . uncomplicated Condition at discharge: Good Disposition: DC-01 TO HOME OR SELFCARE - Discharge Diagnoses (1) Active labor Status: Acute Plan - Discharge Medications Prescriptions: Ibuprofen [Motrin] 800 mg PO Q8HR PRN #30 tablet PRN Reason: Pain , Severe (7-10) HYDROcodone/APAP 5-325 [[place] 5/325] 1 each PO Q6HR PRN #15 tablet PRN Reason: Pain - Provider Discharge Summary Activity: no sex for 6 weeks, no heavy lifting 4 weeks, no strenuous exercise Diet: routine Instructions: routine Additional instructions: [] Smoking cessation referral if applicable(refer to patient education folder for contact #) [] Refer to [facility]'s [facility] Booklet Call your doctor immediately for: * Fever > 100.5 * Heavy vaginal bleeding ( >1 pad per hour) * Severe persistent headache * Shortness of breath * Reddened, hot, painful area to leg or breast * visit in 4 weeks - Follow up plan
[2020-10-06 16:51] VITALS: BP 118/78
--- NOTE | 2020-10-06 17:00 | Post Anesthesia Evaluation ---
- Post Anesthesia Evaluation Patient Participated: Yes Airway Patent: Yes Stable Respiratory Function: Yes Nausea/Vomiting: No Temp > 96.8F: Yes Pain Manageable: Yes Adequeate Hydration: Yes Anesthesia Complications: No Block Receding Appropriately: Yes Patient on Ventilator: No
== END 2020-10-06 18:50 | disposition home or self-care (01) | DRG 774 ==
LOC: TRG 02:26 → APU 02:45 → LD 06:14 → TRG 10-05 10:52 → OB 10-05 14:39
PROVIDERS: ADMIT Obstetrics & Gynecology; ATTEND Obstetrics & Gynecology
PROC: 3E0R3BZ Introduction of Anesthetic Agent into Spinal Canal, Percutaneous Approach (ICD-10-PCS; 2020-10-04)
PROC: 00HU33Z Insertion of Infusion Device into Spinal Canal, Percutaneous Approach (ICD-10-PCS; 2020-10-04)
PROC: 10E0XZZ Delivery of Products of Conception, External Approach (ICD-10-PCS; principal; 2020-10-05)
PROC: 0KQM0ZZ Repair Perineum Muscle, Open Approach (ICD-10-PCS; 2020-10-05)
PROC: 10907ZC Drainage of Amniotic Fluid, Therapeutic from Products of Conception, Via Natural or Artificial Opening (ICD-10-PCS; 2020-10-05)
PROC: 3E0234Z Introduction of Serum, Toxoid and Vaccine into Muscle, Percutaneous Approach (ICD-10-PCS; 2020-10-06)
DX: O60.14X0 Preterm labor third trimester with preterm delivery third trimester, not applicable or unspecified (principal); O72.1 Other immediate postpartum hemorrhage; O99.02 Anemia complicating childbirth; Z3A.36 36 weeks gestation of pregnancy; Z37.0 Single live birth; Z20.822 Contact with and (suspected) exposure to COVID-19; Z23 Encounter for immunization; D64.9 Anemia, unspecified; O70.1 Second degree perineal laceration during delivery
CPT/HCPCS: 36415; 59025; 81001; 82565; 85014; 85018; 85027; 86592; 86850; 86900; 86901; 87086; 88307; 96360; 99211; G0378; G0463; J0290; J2210; J2590; J7120; U0003